=== PATIENT | male | born 1995 | race Hispanic/Latino ===

== ENCOUNTER 2017-10-13 20:20 | Emergency (ER) | payer SELFPAY ==
[2017-10-13] MEDS ORDERED: Ondansetron ODT 4 MG TAB ONE (22:07)
[2017-10-13] MEDS ORDERED: Ibuprofen 200 MG TAB ONE (22:07)
[2017-10-13] MEDS ORDERED: Oxymetazoline HCl 0.05% ( 15 ML ) ONE (22:07)
== END 2017-10-13 22:13 | disposition home or self-care (01) ==
LOC: ERS 20:20
DX: J10.1 Influenza due to other identified influenza virus with other respiratory manifestations (principal); R04.0 Epistaxis
CPT/HCPCS: 87804; 99284; Q0162